=== PATIENT | male | born 1940 | race Caucasian/White ===

== ENCOUNTER → 2016-12-17 | Outpatient (CLI) | payer OTHER ==
[~2016-12-17] MED LIST: ACET-1256 PO; AMLO-110 PO; ASPI-435 PO; ASPI81CH2 PO; ATOR-24 PO; ATOR-26 PO; CETI10TA84 PO; DICY20TA35 PO; DOXY50CA26 PO; DOXY50TA PO; FLUO0.0566 TOP; IPRA0.037 INH; IPRA0.06; LISI-461 PO; METO1TAB31 PO; METO25TA3 PO; METR0.754 TOP; MULT-506 PO; NTRGSL/4 UT; OMEP20CA9 PO; SAW160CA PO; SILD100T PO; TERA1CAP PO; [UNRECOGNIZED DRUG - CODE]
[2016-12-17 15:52] LABS: BASO % 0.4 %; BASO ABS # 0.02 K/uL (0-0.2); COMPLETE YES; HEMATOCRIT 40.8 % (42-52); IG% 0.2 %; LYMPH % 29.7 %; LYMPH ABS # 1.58 K/uL (1.2-3.4); MEAN CELL VOLUME 86.4 fL (80-100); MEAN CORPUSCULAR HEMOGLOBIN 30.7 pg (25-34); MEAN CORPUSCULAR HGB CONC 35.5 g/dl (32-36); MEAN PLATELET VOLUME 10.8 fL (7.4-10.4); MONO % 10.9 %; NEUT % 55.8 %; PLATELET COUNT 177 K/uL (130-400); RED BLOOD COUNT 4.72 M/uL (4.7-6.1); WHITE BLOOD COUNT 5.32 K/uL (4.8-10.8)
[2016-12-17 16:01] LABS: PROTHROMBIN TIME (PATIENT) 10.7 SECONDS (9.0-12.0)
[2016-12-17 16:25] LABS: BLOOD UREA NITROGEN 21 mg/dl (7-18); BUN/CREATININE RATIO 25.5 (10-20); CALCIUM 8.6 mg/dl (8.5-10.1); CARBON DIOXIDE 26 mmol/L (21-32); CHLORIDE 106 mmol/L (98-107); CREATININE 0.82 mg/dl (0.60-1.40); GLUCOSE 91 mg/dl (70-99); POTASSIUM 4.1 mmol/L (3.5-5.1); SODIUM 138 mmol/L (136-145)
== END | disposition home or self-care (01) ==
LOC: C.LAB 14:45
PROVIDERS: ATTEND Orthopaedic Surgery Sports Medicine
DX: Z01.818 Encounter for other preprocedural examination (principal)

== ENCOUNTER → 2017-01-03 | Day surgery (SDC) | payer OTHER ==
[2016-12-18 16:31] VITALS: BMI 27.0
--- NOTE | 2017-01-02 18:53 | HISTORY & PHYSICAL EXAMINATION ---
DATE OF ADMISSION: 01/03/2017 CHIEF COMPLAINT: Chronic right shoulder pain. HISTORY OF PRESENT ILLNESS: This is a 76-year-old male patient of Dr. Gao'wanda complaining of chronic right shoulder pain for approximately 1 year now. He has had no trauma. He is status post resurfacing hemiarthroplasty in 2013. He has continued to have chronic pain in his right shoulder and he has elected to proceed with a right shoulder arthroscopic subacromial decompression, release of scar tissue, and possible debridement rotator cuff. PAST MEDICAL HISTORY: Hypertension, sleep apnea. SOCIAL HISTORY: Nonsmoker, nondrinker. PAST SURGICAL HISTORY: Cataract surgery, coronary bypass surgery, shoulder replacement surgery and hemorrhoidectomy. REVIEW OF SYSTEMS: The patient complains of chronic right shoulder pain. Otherwise, denies any shortness of breath, chest pain, nausea, vomiting or any other joint complaints. MEDICATIONS: Include: 1. Ipratropium bromide 2 sprays t.i.d. in each nostril. 2. Metoprolol 25 mg 1/2 tablet daily. 3. Terazosin 1 mg daily. 4. Doxycycline 50 mg as needed. 5. Lisinopril 10 mg daily. 6. Omeprazole 20 mg daily. 7. Lipitor 80 mg daily. 8. Norvasc 5 mg daily. 9. Viagra 100 mg as needed. 10. Metronidazole 0.75% topical solution, please apply to affected area 2 times daily. 11. Aspirin 81 mg daily. 12. Percocet as needed. ALLERGIES: INCLUDE KEFLEX, ADHESIVES, AND LAMISIL. PHYSICAL EXAMINATION: GENERAL: Well-developed, well-nourished 76-year-old male patient in no acute distress. He is alert and oriented x3 and pleasant. HEENT: He is normocephalic, atraumatic. Extraocular motions are intact. Pupils are equal and reactive to light. HEART: Regular rate and rhythm. LUNGS: Clear. ABDOMEN: Soft and nontender, bowel sounds are present. EXTREMITIES: Right shoulder reveals a range of motion of 170 degrees. He has got pain with impingement maneuvering 5/5 strength. NEUROLOGIC: Neurovascularly, he is intact in his right upper extremity. DIAGNOSES: Right shoulder impingement, history of scar tissue, and partial rotator cuff tear. He also has a history of hypertension and sleep apnea. PLAN: The patient was advised of his diagnoses. Indications, risks, benefits, and postop course have all been reviewed. The patient wishes to proceed with a right shoulder arthroscopic subacromial decompression, release of scar tissue, and possible debridement rotator cuff tear. Necessary consent forms and preoperative clearances will be obtained.
[~2017-01-03] VITALS: Ht 165.1 cm; Wt 74.1 kg
[~2017-01-03] MED LIST changes: -ASPI81CH2 PO; -ATOR-24 PO; +ATROPINE SULFATE 0.1 MG/ML 5ML SYR IV PRN; +DEXAMETHASONE SOD INJ 4 MG/ML VIAL ONE; -DOXY50TA PO; +EpHEDrine SULFATE INJ 50 MG/ML AMP IV PRN; +EpINEphrine HCL INJ 1 MG/ML 5ML SYRINGE ONE; +FENTANYL CITRATE INJ 50 MCG/1 ML 2 ML VIAL ONE; +GLYCOPYRROLATE INJ 0.2 MG/ML VIAL ONE; +HYDROmorphone INJ 2 MG/ML SYR/VIAL IV PRN; -IPRA0.037 INH; +LACTATED RINGER'S 1000ML 1,000 ML IV SCH; +LIDOCAINE HCL 2% 2 ML VIAL (20MG/ML) ONE; -METO1TAB31 PO; +MIDAZOLAM HCL 1 MG/ML 2ML VIAL ONE; +MoRPHine SULFATE 2 MG/ML CARP IV PRN; +NEOSTIGMINE METHYLSULFATE 5 MG/5 ML SYR ONE; +ONDANSETRON INJ 2 MG/ML 2 ML VIAL IV PRN; +ONDANSETRON INJ 2 MG/ML 2 ML VIAL ONE; +OXYC-57 PO; +OXYCODONE/ACETAMINOPHEN 5-325 TAB PO PRN; +PHENYLEPHRINE 100MCG/ML 5ML SYR IV PRN; +PROPOFOL IV EMULSION 10 MG/ML 20 ML VIAL IV ONE; +ROCURONIUM BROMIDE 10 MG/ML 5 ML VIAL IV ONE; +ROPIVACAINE 0.5% 5 MG/ML 30 ML VIAL ONE; +SODIUM CHLORIDE 0.9% 1000ML 1,000 ML IV SCH; +VANCOMYCIN 1GM/270ML NSS IV SCH; -[UNRECOGNIZED DRUG - CODE]
[2017-01-03 05:51] VITALS: BP 160/98; PULSE 61; TEMP 36.6; O2SAT 99; Ht 165.1 cm; Wt 74.1 kg
--- NOTE | 2017-01-03 07:19 | History & Physical Bridge Note ---
H&P Re-Evaluation Bridge Note: I have examined the patient, reviewed the History & Physical and in the interval since the performance of the History & Physical I have noted the following changes of clinical significance: No changes noted
--- NOTE | 2017-01-03 09:41 | Discharge Instructions ---
Discharge Instructions Date of Service Jan 03, 2017. Visit Reason for Visit: Right Shoulder Impingement Syndrome, Rtc Tear Tend Discharge Discharge Diagnosis / Problem: sp right shoulder arthroscopy Discharge Goals Goal(s): Decrease discomfort, Improve function, Increase independence Activity Recommendations Activity Limitations: per Instructions/Follow-up section Anesthesia . Post Anesthesia Instructions: If you have had General Anesthesia or IV Sedation: * Do not drive today. * Resume driving when surgeon permits. * Do not make important decisions or sign legal documents today. * Call surgeon for: 1. Temperature elevations greater than 101 degrees F. 2. Uncontrollable pain. 3. Excessive bleeding. 4. Persistent nausea and vomiting. 5. Medication intolerance (nausea, vomiting or rash). * For nausea and vomiting use only clear liquids such as: tea, soda, bouillon until nausea subsides, then gradually increase diet as tolerated. * If you have any concerns or questions, call your surgeon's office. If physician is unavailable and it is an emergency, call 911 or go to the nearest emergency room. . Instructions / Follow-Up Instructions / Follow-Up [facility] [place] INSTRUCTIONS: SHOULDER ARTHROSCOPY with or without Distal Clavicle Excision SELF CARE INSTRUCTIONS AFTER: A. You are allowed to use your arm actively as comfort allows. Recommend NOT doing repetitive overhead activity or heavy lifting. B. You should start Physical Therapy within 1-3 days from your surgery. You will be provided a prescription with specific restrictions, if needed, at time of discharge. C. You can discontinue the sling as comfort allows within one to two days after surgery. A. At 48 hours post-operatively, you may change your dressing. . (Leave white steri-strips intact if present). Use band-aids and change daily. You are allowed to shower at this time and get the incision area wet, but DO NOT soak or submerge incision area in water. (No baths, swimming pools, hot tubs) B. Do NOT apply soap or any ointment/lotions directly over incision. C. You may use ice as needed to operative shoulder SPECIAL CARE INSTRUCTIONS: VERY IMPORTANT TO READ AND REVIEW A. There are a few signs you need to watch for after you are home. Call [facility] at [phone] if you experience any of the following: a. Increased severe shoulder pain. Some pain is expected especially when you exercise b. Increased swelling in your shoulder or arm; pain or swelling in either upper extremity. (Note: swelling and stiffness is normal and expected for several weeks post op, depending on type of shoulder surgery you had). c. Any fluid or drainage from the incision; redness of the incision. d. Shortness of breath or chest pain. B. Please call [facility] at [phone] if you have any questions or concerns about your operation or recovery. C. Call your physician if: a. Temperature is greater than 101 degrees (F). b. Pain is not relieved by prescribed pain medications. c. Increase drainage or redness from incision. d. Unanswered questions or concerns. D. Pain Medication: a. You will be prescribed pain medication upon discharge that should last till your first post-operative appointment. b. You may also take Advil or Ibuprofen between medication doses if you do not have any contraindication to taking them. c. You may also take Advil or Ibuprofen in place of your pain medication if the pain is tolerable. d. If you experience nausea and/or skin rash, discontinue this medication and contact our office for an alternative medication. e. Caution- narcotic pain medication can cause constipation. FOLLOW UP VISIT: Please call [facility] at [phone] to schedule a follow up appointment 10-14 days from your surgery date. Diet Recommendations Recommended Home Diet: resume previous diet Procedures Procedures Performed: Decompression, Release Scar Tissue, with extensive Debridement, synovectomy, anterior and posterior capsule release and manipulation under anesthesia Pending Studies Studies pending at discharge: no Medical Emergencies . Who to Call and When: Medical Emergencies: If at any time you feel your situation is an emergency, please call 911 immediately. . Non-Emergent Contact Non-Emergency issues call your: Surgeon . . "Provider Documentation" section prepared by Anu Yanes. . [place] Drug Monitoring Program Search Results: patient reviewed within database, no issues identified
--- NOTE | 2017-01-03 09:49 | [facility] Post Operative Brief Note ---
Immediate Operative Summary Operative Date Jan 03, 2017. Pre-Operative Diagnosis Right shoulder impingement, history of scar tissue, and partial rotator cuff tear,s/p hemiarthroplasty shoulder Post-Operative Diagnosis SAME,adhesive capsulitis and synnovitis degeneration glenoid labrum intact rotator cuff Procedure(s) Performed right shoulder arthrocopy subacromial Decompression, Release Scar Tissue, with extensive Debridement, synovectomy, anterior and posterior capsule release and manipulation under anesthesia Surgeon Dr. Kodak Gao Benefits Advisor Surgeon(s) Latasha Yanes PA-C Estimated Blood Loss 15ml Findings as above Specimens none per surgeon Anesthesia general and regional Complication(s) None Disposition Recovery Room / PACU
--- NOTE | 2017-01-03 09:57 | Anesthesiology Progress Note ---
Anesthesia Post Op Note Date & Time Jan 03, 2017 at 09:57 Vital Signs Pain Intensity: 0 Vital Signs Past 12 Hours Date Time Temp Pulse Resp B/P (MAP) Pulse Ox O2 Delivery O2 Flow Rate FiO2 01/03/17 09:45 63 13 129/75 98 Room Air 01/03/17 09:35 36.0 64 16 133/98 98 Room Air 01/03/17 05:51 36.6 61 18 160/98 (118) 99 Room Air Notes Mental Status: alert / awake / arousable, participated in evaluation Pt Amnestic to Procedure: Yes Nausea / Vomiting: adequately controlled Pain: adequately controlled Airway Patency, RR, SpO2: stable & adequate BP & HR: stable & adequate Hydration State: stable & adequate Anesthetic Complications: no major complications apparent
[2017-01-03 10:22] VITALS: BP 146/87; PULSE 61; TEMP 36; O2SAT 96
[2017-01-03 10:50] VITALS: BP 155/83; PULSE 62; O2SAT 96
[2017-01-03 11:20] VITALS: BP 125/70; PULSE 70; TEMP 36.4; O2SAT 95
--- NOTE | 2017-01-03 12:18 | OPERATIVE REPORT ---
DATE OF OPERATION: 01/03/2017 INDICATION FOR PROCEDURE: The patient is a 76-year-old male with chronic stiffness and moderate pain, status post a hemiarthroplasty of his right shoulder. He had a resurfacing hemiarthroplasty. Never regained full range of motion postoperatively. His x-rays demonstrate he has a well-aligned hemiarthroplasty, no loosening, concentric wear. He has no significant proximal migration of the humerus, but does have some spurring in the anterior acromion that could be causing some impingement. He has some mild AC joint arthritic changes. He has failed conservative management. PREOPERATIVE DIAGNOSES: Chronic right shoulder stiffness, status post hemiarthroplasty; right shoulder impingement syndrome; history of partial tear rotator cuff. 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 PROCEDURES: Right shoulder arthroscopy, extensive debridement including labrum, partial synovectomy, anterior and posterior capsular releases, subacromial debridement and subacromial decompression and manipulation under anesthesia. SURGEON: Dr. Gao. MARKET REPORTER: RASHAWN Keller. ANESTHESIA: Regional block general. OPERATIVE PROCEDURE: The patient was taken to the operating room, anesthetized with regional block and general anesthetic. He was positioned on the [facility] shoulder table in a 70-degree beach chair position. His right shoulder was examined under anesthesia. He only had 45 degrees of external rotation and 45 degrees of internal rotation and abduction to 90 degrees and forward elevation to 120. The shoulder was sterilely prepped and draped with ChloraPrep. Arthroscopy was then started with a posterior arthroscopy portal in the soft spot. We made an anterior portal in rotator interval and a lateral portal in the subacromial space. Intra-articular findings demonstrated he had intact hemiarthroplasty. He had an intact rotator cuff. He had chronic synovitis throughout the inside of the joint. He had degeneration of labrum. Glenoid for the most part was down to bone. There was no abnormal wear pattern. He had very extensive tight scar tissue limiting range of motion of his joint. There was extensive scarring in the rotator interval. He had previous biceps tenodesis, there was absent biceps tendon. In the subacromial space, there was chronic bursal adhesions and scar tissue. He had a type 2-3 acromion with more of medial spur toward the AC joint. Rotator cuff on the bursal side was completely normal. Extensive debridement was performed with a circumferential debridement of the labrum, synovectomy anterior posteriorly and had to do capsular releases, releasing the capsule off the anterior bone on the glenoid, starting at the rotator interval area which was released above the subscapularis tendon, released the superior capsule and rotator interval off the base of the coracoid under the supraspinatus. Then we released the anterior capsule down to between the 5:30 and 6 o'clock position. Staying on bone, I used a hook probe and a 90-degree ablator. Then we placed the scope anteriorly and debrided the posterior and posterior inferior labrum, used the hook probe and 90-degree radiofrequency ablator to the posterior capsular release as well. The shoulder was then manipulated under anesthesia, I was able to get him to close to 180 degrees of forward elevation and 90 degrees of external rotation. His internal rotation was only about 70-75. I went ahead in the subacromial space, did a thorough subacromial bursectomy, removing all the bursal adhesions and excised all the pathological bursa, ablated the periosteum and bursa on the undersurface of the acromion, exposed the anterior acromial spur, used a 5.5 bur to plane down the acromion to a type 1 flat shape. Then we did another manipulation to manipulate his arm fully to regain as much motion as possible. Then the portal sites were closed with nylon sutures. Sterile dressings were applied and a sling. RASHAWN Keller was my or assistant. He functioned as or assistant for the entire procedure. He assisted in patient positioning, arm positioning, instrument management and performed the skin closure, dressing and sling application, will participate in some of the postoperative care of the patient. I attest to the content of the Intraoperative Record and any orders documented therein. Any exception s are noted below.
== END | disposition home or self-care (01) ==
LOC: C.ACU 04:58
PROVIDERS: ATTEND Orthopaedic Surgery Sports Medicine
DX: M75.41 Impingement syndrome of right shoulder (principal); M75.01 Adhesive capsulitis of right shoulder; M75.51 Bursitis of right shoulder; M19.011 Primary osteoarthritis, right shoulder; Z96.611 Presence of right artificial shoulder joint

== ENCOUNTER 2017-09-22 07:37 | Observation (INO) | payer OTHER ==
[~2017-09-22] VITALS: Ht 165.1 cm; Wt 78.5 kg
[~2017-09-22 07:37] MED LIST changes: -ACET-1256 PO; -AMLO-110 PO; +AMLO5TAB3 PO; -ATROPINE SULFATE 0.1 MG/ML 5ML SYR IV PRN; -DEXAMETHASONE SOD INJ 4 MG/ML VIAL ONE; +DOXY-258 PO; -DOXY50CA26 PO; -EpHEDrine SULFATE INJ 50 MG/ML AMP IV PRN; -EpINEphrine HCL INJ 1 MG/ML 5ML SYRINGE ONE; -FENTANYL CITRATE INJ 50 MCG/1 ML 2 ML VIAL ONE; -GLYCOPYRROLATE INJ 0.2 MG/ML VIAL ONE; -HYDROmorphone INJ 2 MG/ML SYR/VIAL IV PRN; -LACTATED RINGER'S 1000ML 1,000 ML IV SCH; -LIDOCAINE HCL 2% 2 ML VIAL (20MG/ML) ONE; -MIDAZOLAM HCL 1 MG/ML 2ML VIAL ONE; -MoRPHine SULFATE 2 MG/ML CARP IV PRN; -NEOSTIGMINE METHYLSULFATE 5 MG/5 ML SYR ONE; -ONDANSETRON INJ 2 MG/ML 2 ML VIAL IV PRN; -ONDANSETRON INJ 2 MG/ML 2 ML VIAL ONE; -OXYC-57 PO; -OXYCODONE/ACETAMINOPHEN 5-325 TAB PO PRN; -PHENYLEPHRINE 100MCG/ML 5ML SYR IV PRN; -PROPOFOL IV EMULSION 10 MG/ML 20 ML VIAL IV ONE; -ROCURONIUM BROMIDE 10 MG/ML 5 ML VIAL IV ONE; -ROPIVACAINE 0.5% 5 MG/ML 30 ML VIAL ONE; -SODIUM CHLORIDE 0.9% 1000ML 1,000 ML IV SCH; -VANCOMYCIN 1GM/270ML NSS IV SCH
[2017-09-22] MEDS ORDERED: MELO7.5T5 PO (08:15)
[2017-09-22] MEDS ORDERED: FLUT0.15 NAE (08:15)
--- NOTE | 2017-09-22 08:16 | DIAGNOSTIC IMAGING REPORT ---
CHEST ONE VIEW PORTABLE CLINICAL HISTORY: Evaluate Fever/Sepsis dyspnea COMPARISON STUDY: No previous studies for comparison. FINDINGS: The bones soft tissues and hemidiaphragms are normal. The cardiomediastinal silhouette is normal. The lungs are clear. The pulmonary vasculature is normal. IMPRESSION: Negative chest. The above report was generated using voice recognition software. It may contain grammatical, syntax or spelling errors. Electronically signed by: Bhupendra Delgado M.D. 09/22/2017 8:15 AM Dictated Date/Time: 09/22/2017 8:13 AM
[2017-09-22 08:25] LABS: BASO % 0.3 %; BASO ABS # 0.01 K/uL (0-0.2); EOS % 3.9 %; EOS ABS # 0.15 K/uL (0-0.5); HEMATOCRIT 40.6 % (42-52); HEMOGLOBIN 13.9 g/dL (14.0-18.0); IG# 0.01 K/uL (0.00-0.02); LYMPH % 29.9 %; LYMPH ABS # 1.16 K/uL (1.2-3.4); MEAN CELL VOLUME 88.5 fL (80-100); MEAN CORPUSCULAR HEMOGLOBIN 30.3 pg (25-34); MEAN CORPUSCULAR HGB CONC 34.2 g/dl (32-36); MEAN PLATELET VOLUME 11.1 fL (7.4-10.4); MONO ABS # 0.27 K/uL (0.11-0.59); NEUT % 58.6 %; NEUT ABS # 2.28 K/uL (1.4-6.5); PLATELET COUNT 152 K/uL (130-400); RED CELL DISTRIBUTION WIDTH CV 12.9 % (11.5-14.5); RED CELL DISTRIBUTION WIDTH SD 41.2 fL (36.4-46.3); WHITE BLOOD COUNT 3.88 K/uL (4.8-10.8)
[2017-09-22 08:30] LABS: PTT PATIENT 25.2 SECONDS (21.0-31.0)
[2017-09-22 08:47] LABS: ALBUMIN 3.4 gm/dl (3.4-5.0); ALKALINE PHOSPHATASE 43 U/L (45-117); ALT/SGPT 40 U/L (12-78); AST/SGOT 30 U/L (15-37); BLOOD UREA NITROGEN 17 mg/dl (7-18); CALCIUM 8.5 mg/dl (8.5-10.1); CARBON DIOXIDE 28 mmol/L (21-32); CKMB 1.6 ng/ml (0.5-3.6); CREATININE 0.84 mg/dl (0.60-1.40); GLUCOSE 107 mg/dl (70-99); POTASSIUM 4.1 mmol/L (3.5-5.1); SODIUM 139 mmol/L (136-145); TOTAL PROTEIN 6.1 gm/dl (6.4-8.2)
--- NOTE | 2017-09-22 10:13 | EMERGENCY ROOM VISIT NOTE ---
History Report prepared by Earline: Luis Antonio Hernandez Under the Supervision of: Dr. Noah Kaplan D.O. First contact with patient: 07:46 Chief Complaint: CHEST PAIN Stated Complaint: CHEST PRESSURE History of Present Illness The patient is a 76 year old male who presents to the Emergency Room with complaints of chest discomfort that began this morning, shortly prior to arrival. The patient states that he was walking his dog this morning when he experienced a "pressure" in his chest. He notes that the pain persisted for about 20 minutes before subsiding. The pain subsided when he returned to his house, and remains resolved. The patient adds that he had a similar sensation in 2013 when he was diagnosed with coronary artery blockage. 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 A total of 10 systems reviewed and were otherwise negative. Past Medical & Surgical Medical Problems: (1) Arthritis Family History Omitted secondary to age Social History Smoking Status: Former Smoker Marital Status: Housing Status: lives with family Occupation Status: retired Current/Historical Medications Scheduled Amlodipine (Norvasc), 5 MG PO QAM Aspirin (Aspirin 81), 162 MG PO QPM Atorvastatin (Lipitor), 80 MG PO QPM Cetirizine (Zyrtec), 10 MG PO QAM Doxycycline (Monohydrate) (Doxycycline), 100 MG PO BID Fluocinonide (Fluocinonide), 1 APPLN TOP QAM Fluticasone Propionate (Nasal) (Flonase Allergy Relief), 1 SPRAY ZHAO DAILY Ipratropium Lasara (Nasal) (Ipratropium Lasara), 2 SPRAYS NA BID Lisinopril (Zestril), 10 MG PO QAM Meloxicam (Mobic), 7.5 MG PO DAILY Metoprolol Succ (Toprol Xl) (Toprol-Xl), 12.5 MG PO QAM Metronidazole (Topical) (Metrocream), 1 APPLN TOP QAM Multivitamin (Multivitamin), 1 TAB PO QPM Nitroglycerin (Nitrostat), 0.4 MG UT PRN Omeprazole (Prilosec), 20 MG PO BID [place] (Serenoa Repens) ([place] Prostate Com), 160 MG PO BID Sildenafil Citrate (Viagra), 100 MG PO PRN Allergies Coded Allergies: Terbinafine (Verified Allergy, Severe, RASH, 09/22/17) Adhesives (Verified Allergy, Intermediate, REDDENED AREAS ON SKIN, 09/22/17 ) FROM TAPES Cephalexin (Verified Allergy, Intermediate, RASH, 09/22/17) Physical Exam Vital Signs Date Time Temp Pulse Resp B/P (MAP) Pulse Ox O2 Delivery O2 Flow Rate FiO2 09/22/17 09:07 64 21 168/88 99 09/22/17 08:37 60 12 99 09/22/17 08:07 63 12 98 09/22/17 08:02 63 09/22/17 07:57 36.7 62 20 155/85 97 Room Air 09/22/17 07:53 155/85 09/22/17 07:52 Room Air Physical Exam CONSTITUTIONAL/VITAL SIGNS: Reviewed / noted above. GENERAL: Non-toxic in appearance. INTEGUMENTARY: Warm, dry, and [place]. HEAD: Normocephalic. EYES: without scleral icterus or trauma. ENT/OROPHARYNX: clear and moist. LYMPHADENOPATHY/NECK: Is supple without lymphadenopathy or meningismus. RESPIRATORY: Lungs clear and equal. CARDIOVASCULAR: Regular rate and rhythm. GI/ABDOMEN: Soft and nontender. No organomegaly or pulsatile mass. No rebound or guarding. Normal bowel sounds. EXTREMITIES: Warm and well perfused. BACK: No CVA tenderness. NEUROLOGICAL: Intact without focal deficits. PSYCHIATRIC: normal affect. MUSCULOSKELETAL: Normally developed with good muscle tone. Medical Decision & Procedures ER Provider Diagnostic Interpretation: Radiology results as stated below per my review and radiologist interpretation: CHEST ONE VIEW PORTABLE CLINICAL HISTORY: Evaluate Fever/Sepsis dyspnea COMPARISON STUDY: No previous studies for comparison. FINDINGS: The bones soft tissues and hemidiaphragms are normal. The cardiomediastinal silhouette is normal. The lungs are clear. The pulmonary vasculature is normal. IMPRESSION: Negative chest. The above report was generated using voice recognition software. It may contain grammatical, syntax or spelling errors. Electronically signed by: Bhupendra Delgado M.D. 09/22/2017 8:15 AM Dictated Date/Time: 09/22/2017 8:13 AM Laboratory Results 09/22/17 08:10 Red Blood Count 4.59, Mean Corpuscular Volume 88.5, Mean Corpuscular Hemoglobin 30.3, Mean Corpuscular Hemoglobin Concent 34.2, Mean Platelet Volume 11.1, Neutrophils (%) (Auto) 58.6, Lymphocytes (%) (Auto) 29.9, Monocytes (%) (Auto) 7.0, Eosinophils (%) (Auto) 3.9, Basophils (%) (Auto) 0.3, Neutrophils # (Auto) 2.28, Lymphocytes # (Auto) 1.16, Monocytes # (Auto) 0.27, Eosinophils # (Auto) 0.15, Basophils # (Auto) 0.01 09/22/17 08:10 Test 09/22/17 08:10 White Blood Count 3.88 K/uL (4.8-10.8) Red Blood Count 4.59 M/uL (4.7-6.1) Hemoglobin 13.9 g/dL (14.0-18.0) Hematocrit 40.6 % (42-52) Mean Corpuscular Volume 88.5 fL (80-100) Mean Corpuscular Hemoglobin 30.3 pg (25-34) Mean Corpuscular Hemoglobin Concent 34.2 g/dl (32-36) Platelet Count 152 K/uL (130-400) Mean Platelet Volume 11.1 fL (7.4-10.4) Neutrophils (%) (Auto) 58.6 % Lymphocytes (%) (Auto) 29.9 % Monocytes (%) (Auto) 7.0 % Eosinophils (%) (Auto) 3.9 % Basophils (%) (Auto) 0.3 % Neutrophils # (Auto) 2.28 K/uL (1.4-6.5) Lymphocytes # (Auto) 1.16 K/uL (1.2-3.4) Monocytes # (Auto) 0.27 K/uL (0.11-0.59) Eosinophils # (Auto) 0.15 K/uL (0-0.5) Basophils # (Auto) 0.01 K/uL (0-0.2) RDW Standard Deviation 41.2 fL (36.4-46.3) RDW Coefficient of Variation 12.9 % (11.5-14.5) Immature Granulocyte % (Auto) 0.3 % Immature Granulocyte # (Auto) 0.01 K/uL (0.00-0.02) Prothrombin Time 10.9 SECONDS (9.0-12.0) Prothromb Time International Ratio 1.0 (0.9-1.1) Activated Partial Thromboplast Time 25.2 SECONDS (21.0-31.0) Partial Thromboplastin Ratio 1.0 Anion Gap 5.0 mmol/L (3-11) Est Creatinine Clear Calc Drug Dose 74.5 ml/min Estimated GFR () 100.0 Estimated GFR (Non- 86.3 BUN/Creatinine Ratio 19.6 (10-20) Calcium Level 8.5 mg/dl (8.5-10.1) Total Bilirubin 0.5 mg/dl (0.2-1) Direct Bilirubin 0.2 mg/dl (0-0.2) Aspartate Amino Transf (AST/SGOT) 30 U/L (15-37) Alanine Aminotransferase (ALT/SGPT) 40 U/L (12-78) Alkaline Phosphatase 43 U/L (45-117) Total Creatine Kinase 71 U/L (39-308) Creatine Kinase MB 1.6 ng/ml (0.5-3.6) Creatine Kinase MB Ratio 2.3 (0-3.0) Troponin I < 0.015 ng/ml (0-0.045) Total Protein 6.1 gm/dl (6.4-8.2) Albumin 3.4 gm/dl (3.4-5.0) Laboratory results as stated above per my review. ECG Per My Interpretation Indication: chest pain Rate (beats per minute): 61 Rhythm: normal sinus Findings: LAFB, RBBB, no ectopy, other (No NEIL) ED Course 0749: Previous medical records were reviewed. The patient was evaluated in room A3. A complete history and physical examination was performed. 0849: I discussed the case with Dr. Daley - [facility] He will come to the department to see the patient. 0851: I updated the patient on my discussion with Dr. Daley. 0923: Dr. Daley is at bedside with the patient, he will admit the patient to the hospital. Medical Decision the differential was considered includes acute myocardial infarction, acute coronary syndrome, myocarditis, pericarditis, pericardial effusions /tamponade, esophageal perforation, thoracic aortic dissection, pulmonary embolism, pneumonia, pneumothorax, pancreatitis, shingles, acute cholecystitis, perforated abdominal viscus. This is a 76-year-old male who presents to the ED with a chief complaint of retrosternal pressure with walking today. His symptoms lasted during his 20 minute walk and then subsided with rest. He had no other associated symptoms. He does recent report similar episodes in 2013 prior to his single-vessel bypass. The patient's vital signs are stable. His physical exam was normal. EKG shows a normal sinus rhythm at a rate of 61 with a right bundle branch block. Blood work was unremarkable including CBC, chemistries and a troponin. The patient was seen by Dr. Batitsa. The patient will be kept in the hospital for further evaluation and care. Medication Reconcilliation Current Medication List: was personally reviewed by me Blood Pressure Screening Patient's blood pressure: Elevated blood pressure Referred to cardiology. Consults Time Called: [phone] Consulting Physician: Dr. Daley - [facility] Returned Call: [phone] I discussed the case with Dr. Daley - [facility]. He will come to the department to see the patient. Impression Primary Impression: Anginal pain Scribe Attestation The scribe's documentation has been prepared under my direction and personally reviewed by me in its entirety. I confirm that the note above accurately reflects all work, treatment, procedures, and medical decision making performed by me. Departure Information Dispostion Being Evaluated By Hospitalist (and Rivet Catcher) Referrals Boone Michelle M.D. (PCP) Patient Instructions My [facility]
--- NOTE | 2017-09-22 10:19 | Cardiology Consultation ---
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 Kaplan for the evaluation of chest pressure. The patient's primary care physician is Dr. Boone Michelle. The patient's primary catcher plug is Nicholas Blankenship of our practice. The patient states that he has been in his normal state of health recently. He exercises 3 times per week at the [facility] performing aerobic activity including stationary bicycle and resistance training. Yesterday he hiked [address] including walking up a hill the had a 10% incline and he felt well with no perceived limitation his activity and no chest pressure. This morning between 630 and 7 AM he went for his routine walk with his dog that he does every morning. During the walk, he felt chest pressure that was reminiscent of the symptoms that prompted his cardiac catheterization and bypass surgery in 2013. He believes the symptoms persisted for a few minutes after he returned from his walk and subsequently went away after resting for perhaps 5 or 10 minutes. Due to his concern about his symptoms he had contacted me as our on- call physician the our answering service and I referred him to the emergency room. On my evaluation in the emergency room, room A3, the patient was comfortable. He is accompanied by his spouse. History Past Medical History: 1. Chronic coronary heart disease -Patient initially presented in December 2013 with exertional chest pressure. An exercise stress echocardiogram performed as an outpatient revealed ischemia in the LAD territory. The patient subsequently underwent cardiac catheterization performed by Dr. Blankenship at [facility] in December 2013 revealing high-grade diffuse LAD disease that propagated back to the left main, and distally, the LAD obstruction was at the level of 80-90%. Nonobstructive disease was noted elsewhere. He went on to have single-vessel CABG 1 in January,, with no repeat symptoms concerning of angina until today . 2. Hypertension 3. Dyslipidemia 4. History of obstructive sleep apnea, started CPAP several months ago 5. History of traumatic Achilles tendon rupture in March, that occurred while playing pickle ball. The patient was casted for 6 months and responded well to conservative therapy without operation. 6. History of right shoulder impingement, rotator cuff tear Past Surgical History: 1. Right shoulder arthroscopy with subacromial decompression, debridement, 12/10 2. Cataract surgery 3. Remote prior shoulder replacement 4. Hemorrhoidectomy 5. [place] [facility] [place] 6. Cardiac catheterization 12/2013 Social History: The patient is a former pipe tobacco smoker having quit 25 years ago He denies chronic intake of alcohol He is a retired [employer] database admin who works for the [employer] He is accompanied by his spouse, who is a retired nurse. Family History: Mother is having lived to her 90s with hypertension and coronary heart disease Review Of Systems 10 point review of systems is reviewed and is negative with the exception of that above Allergies Coded Allergies: Terbinafine (Verified Allergy, Severe, RASH, 09/22/17) Adhesives (Verified Allergy, Intermediate, REDDENED AREAS ON SKIN, 09/22/17 ) FROM TAPES Cephalexin (Verified Allergy, Intermediate, RASH, 09/22/17) Medications Reported Home Medications Medications Dose Route/Sig Max Daily Dose Days Date Category Mobic (Meloxicam) 7.5 Mg Tab 7.5 Mg PO DAILY 09/22/17 Reported Flonase Allergy Relief (Fluticasone Propionate (Nasal)) 50 Mcg/Act Spr 1 [place] ZHAO DAILY 09/22/17 Reported Doxycycline (Doxycycline (Monohydrate)) 50 Mg Cap 100 Mg PO BID 10 01/03/17 Rx Zyrtec (Cetirizine HCl) 10 Mg Tab 10 Mg PO QAM 12/18/16 Reported Fluocinonide 0.05 % Sary 1 Appln TOP QAM 12/18/16 Reported Multivitamin (Multivitamins) Tab 1 Tab PO QPM 12/18/16 Reported Viagra (Sildenafil Citrate) 100 Mg Tab 100 Mg PO PRN 12/18/16 Reported Nitrostat (Nitroglycerin) 0.4 Mg Tab 0.4 Mg UT PRN 12/18/16 Reported Toprol-Xl (Metoprolol Succinate) 25 Mg Tabcr 12.5 Mg PO QAM 12/18/16 Reported Ipratropium [place] (Ipratropium [place] (Nasal)) 0.06 % Spr 2 Sprays NA BID 12/18/16 Reported Norvasc (Amlodipine Besylate) 5 Mg Tab 5 Mg PO QAM 12/18/16 Reported Metrocream (Metronidazole (Topical)) 0.75 % Cre 1 Appln TOP QAM 12/18/16 Reported Zestril (Lisinopril) 10 Mg Tab 10 Mg PO QAM 12/18/16 Reported Aspirin 81 (Aspirin) 81 Mg Tab 162 Mg PO QPM 12/18/16 Reported Lipitor (Atorvastatin Calcium) 80 Mg Tab 80 Mg PO QPM 12/18/16 Reported Saw [place] Prostate Com (Saw [place] (Serenoa Repens)) 160 Mg Cap 160 Mg PO BID 03/07/14 Reported Prilosec (Omeprazole) 20 Mg Cap 20 Mg PO BID 04/15/13 Reported Physical Exam Vital Signs (Last 8hrs): Last 8 Hrs Date Time Temp Pulse Resp B/P (MAP) Pulse Ox O2 Delivery O2 Flow Rate FiO2 09/22/17 09:07 64 21 168/88 99 09/22/17 08:37 60 12 99 09/22/17 08:07 63 12 98 09/22/17 08:02 63 09/22/17 07:57 36.7 62 20 155/85 97 Room Air 09/22/17 07:53 155/85 09/22/17 07:52 Room Air General Appearance: Alert and Oriented x3. NAD. Head: Normocephalic Atraumatic. Eyes: PERRLA, EOMI, conjunctiva and sclera clear Neck: Supple. No carotid bruits noted. No JVD. No HJD. Respiratory: Breath sounds clear to auscultation bilaterally. No w/r/r. Cardiovascular: Reg rate and rhythm. S1 and S2 noted. No murmurs, rubs, gallops. PMI non displace. Abdomen: Normal bowel sounds, soft nontender. no abdominal bruits. Extremities: No edema, no clubbing or cyanosis. distal pulses 2/4 bilaterally. Neuro: No focal deficits. Psychiatric: Normal affect. Data Last Resulted 09/22/17 08:10 Red Blood Count 4.59, Mean Corpuscular Volume 88.5, Mean Corpuscular Hemoglobin 30.3, Mean Corpuscular Hemoglobin Concent 34.2, Mean Platelet Volume 11.1, Neutrophils (%) (Auto) 58.6, Lymphocytes (%) (Auto) 29.9, Monocytes (%) (Auto) 7.0, Eosinophils (%) (Auto) 3.9, Basophils (%) (Auto) 0.3, Neutrophils # (Auto) 2.28, Lymphocytes # (Auto) 1.16, Monocytes # (Auto) 0.27, Eosinophils # (Auto) 0.15, Basophils # (Auto) 0.01 Last Resulted 09/22/17 08:10 Past 24 Hours Test 09/22/17 08:10 Range/Units Creatine Kinase MB 1.6 0.5-3.6 ng/ml Creatine Kinase MB Ratio 2.3 0-3.0 Prothromb Time International Ratio 1.0 0.9-1.1 Prothrombin Time 10.9 9.0-12.0 SECONDS Total Creatine Kinase 71 39-308 U/L Troponin I < 0.015 0-0.045 ng/ml EKG performed in the emergency department revealed sinus rhythm with bifascicular block pattern, right bundle branch block and left anterior fascicular block, unchanged compared to his prior outpatient EKG. Assessment & Plan Impression: 76-year-old male 1. Single episode of exertional chest pressure while walking his dog that resolved with subsequent rest. Patient is currently asymptomatic in the emergency room with negative troponin 1 negative EKG 1 2. Symptoms were reminiscent of the anginal symptoms that prompted his cardiac catheterization, coronary artery bypass grafting 1 with DAVIS to LAD in January -Tonic bifascicular block, right bundle branch block, left anterior fascicular block 3. Hypertension, blood pressure a little bit above goal 4. Dyslipidemia 5. Traumatic Achilles tendon rupture, stable, he is back to his regular routine and is able to walk without orthopedic discomfort Recommendations: At this time, recommend admission to telemetry for further observation. Recommend serial cardiac isoenzymes. Resting echocardiogram will be obtained. Depending upon his course, we will determine next best step for ischemic workup with either further stratification utilizing stress testing versus proceeding with cardiac catheterization. Case discussed with Dr. Kaplan the emergency department and Dr. Andersno who is covering for the [facility] service.
[2017-09-22] MEDS ORDERED: ASPIRIN 81 MG CHEW PO STA (10:32)
[2017-09-22] MEDS ORDERED: DOXY-258 PO (10:43)
[2017-09-22] MEDS ORDERED: TERA5CAP PO (10:43)
[2017-09-22] MEDS ORDERED: NITROGLYCERIN 0.4 MG SL PER TAB CHARGE SL PRN (10:45)
[2017-09-22] MEDS ORDERED: ACETAMINOPHEN 325 MG TAB PO PRN (10:45)
[2017-09-22] MEDS ORDERED: POLYETHYLENE (MIRALAX) 17 GM PACK PO PRN (10:45)
[2017-09-22] MEDS ORDERED: ONDANSETRON INJ 2 MG/ML 2 ML VIAL IV PRN (10:45)
[2017-09-22] MEDS ORDERED: PERFLUTREN LIPID MICROSPHERE (DEFINITY) IV ONE (10:56)
[2017-09-22] MEDS ORDERED: METOPROLOL SUCC 25MG EXT REL TAB PO ONE (11:00)
[2017-09-22] MEDS ORDERED: LISINOPRIL 10 MG TAB PO ONE (11:00)
[2017-09-22] MEDS ORDERED: AMLODIPINE BESYLATE 5 MG TAB PO ONE (11:00)
[2017-09-22 11:19] VITALS: BP 190/92; PULSE 66; TEMP 36.5; O2SAT 99; Ht 165.1 cm; Wt 78.5 kg
[2017-09-22] MEDS: HEPARIN SOD 5000 UNIT/0.5 ML CARP SQ SCH ×2 (12:07→20:57)
[2017-09-22 12:10] VITALS: O2SAT 99
[2017-09-22] MEDS ORDERED: IV FLUIDS COMPLETED PRN (12:15)
--- NOTE | 2017-09-22 12:45 | History and Physical ---
History & Physical Date & Time of Service: Sep 22, 2017 at 10:44 Chief Complaint: Chest Pressure Primary Care Physician: Boone Michelle M.D. History of Present Illness Source: patient, spouse, clinic records, hospital records Pt is 76 y/o M with PMH CAD S/P CABG in 2013, HTN, HLD, bifascicular heart block , GERD, HUANG presented to ER with complaint of chest pressure. Patient states was walking his dog this morning and as soon as started walking started having chest pressure to mid chest that was nonradiating and continued throughout his 20 minute walk. Reports pain resolved approximately 5 minutes after rest and has been pain-free since. Patient denies any associated dizziness, SOB, palpitations, nausea, vomiting. He states this chest pressure was similar to what he experienced prior to his CABG in 2013. Patient states goes to gym 3 times a week, and walks daily without any CP or SOB. He states only took his mobic this morning, did not take his other medications. Ate yogurt this morning. Patient reports history left Achilles tendon rupture in 03/2017 in which he was casted for approximately 6 weeks. Patient states gets some swelling to left ankle and calf with activity, denies any worsening, denies any other edema. Denies fever/chills, diaphoresis, N/V/D/C, AUGUSTINE, dizziness, syncope, vision changes, neck pain, orthopnea, cough, sore throat, choking, otalgia, abdominal pain, paresthesias, weakness, extremity weakness, rashes, urinary symptoms, weight loss. Past Medical/Surgical History Medical Problems: (1) Arthritis Status: Chronic (2) CAD (coronary artery disease) Status: Chronic (3) DJD (degenerative joint disease) Status: Chronic (4) GERD (gastroesophageal reflux disease) Status: Chronic (5) HTN (hypertension) Status: Chronic (6) Hyperlipidemia Status: Chronic (7) HUANG (obstructive sleep apnea) Status: Chronic (8) Psoriasis Status: Chronic (9) Rosacea Status: Chronic Surgical Problems: (1) Hx of cataract surgery Status: Resolved (2) S/P CABG x 1 Permanent Comment: 2013- [facility] [place] Status: Resolved Family History FH: lung cancer Hypertension Stroke Social History Smoking Status: Former Smoker (Smokes pipe 30 years: Quit 1995) Smokeless Tobacco Use: No Alcohol Use: 2 drinks daily Drug Use: none Marital Status: Occupational Status: retired Immunizations History of Influenza Vaccine: Yes Influenza Vaccine Date: Feb 10, 2006 History of Tetanus Vaccine?: Yes History of Pneumococcal: Yes History of Hepatitis B Vaccine: No Allergies Coded Allergies: Terbinafine (Verified Allergy, Severe, RASH, 09/22/17) Adhesives (Verified Allergy, Intermediate, REDDENED AREAS ON SKIN, 09/22/17 ) FROM TAPES Cephalexin (Verified Allergy, Intermediate, RASH, 09/22/17) Home Medications Scheduled Amlodipine (Norvasc), 5 MG PO QAM Aspirin (Aspirin 81), 162 MG PO QPM Atorvastatin (Lipitor), 80 MG PO QPM Cetirizine (Zyrtec), 10 MG PO QAM Doxycycline (Monohydrate) (Doxycycline), 1 CAP PO DAILY Fluticasone Propionate (Nasal) (Flonase Allergy Relief), 2 SPRAY ZHAO BID Ipratropium [place] (Nasal) (Ipratropium [place]), 2 SPRAYS NA BID Lisinopril (Zestril), 10 MG PO QAM Meloxicam (Mobic), 7.5 MG PO DAILY Metoprolol Succ (Toprol Xl) (Toprol-Xl), 12.5 MG PO QAM Multivitamin (Multivitamin), 1 TAB PO QPM Nitroglycerin (Nitrostat), 0.4 MG UT PRN Omeprazole (Prilosec), 20 MG PO BID Saw [place] (Serenoa Repens) (Saw [place] Prostate Com), 160 MG PO DAILY Sildenafil Citrate (Viagra), 100 MG PO PRN Terazosin (Hytrin), 1 CAP PO HS Scheduled PRN Fluocinonide (Fluocinonide), 1 APPLN TOP QAM PRN for psoriasis Metronidazole (Topical) (Metrocream), 1 APPLN TOP QAM PRN for rosacea Review of Systems See HPI for pertinent positives & negatives. All other systems reviewed and were otherwise negative Physical Exam Vital Signs Date Time Temp Pulse Resp B/P (MAP) Pulse Ox O2 Delivery O2 Flow Rate FiO2 09/22/17 09:07 64 21 168/88 99 09/22/17 08:37 60 12 99 09/22/17 08:07 63 12 98 09/22/17 08:02 63 09/22/17 07:57 36.7 62 20 155/85 97 Room Air 09/22/17 07:53 155/85 09/22/17 07:52 Room Air General Appearance: WD/WN, no apparent distress Head: normocephalic, atraumatic Eyes: normal inspection, sclerae normal ENT: hearing grossly normal, pharynx normal, + pertinent finding (Mucous membranes moist) Neck: supple, trachea midline Respiratory/Chest: lungs clear, normal breath sounds, no respiratory distress Cardiovascular: regular rate, rhythm, no murmur Abdomen/GI: normal bowel sounds, non tender, soft Extremities/Musculoskelatal: no calf tenderness, normal capillary refill, no pedal edema, non-tender Neurologic/Psych: alert, normal mood/affect, oriented x 3 Skin: warm/dry Diagnostics Laboratory Results Results Past 24 Hours Test 09/22/17 08:10 Range/Units White Blood Count 3.88 4.8-10.8 K/uL Red Blood Count 4.59 4.7-6.1 M/uL Hemoglobin 13.9 14.0-18.0 g/dL Hematocrit 40.6 42-52 % Mean Corpuscular Volume 88.5 80-100 fL Mean Corpuscular Hemoglobin 30.3 25-34 pg Mean Corpuscular Hemoglobin Concent 34.2 32-36 g/dl Platelet Count 152 130-400 K/uL Mean Platelet Volume 11.1 7.4-10.4 fL Neutrophils (%) (Auto) 58.6 % Lymphocytes (%) (Auto) 29.9 % Monocytes (%) (Auto) 7.0 % Eosinophils (%) (Auto) 3.9 % Basophils (%) (Auto) 0.3 % Neutrophils # (Auto) 2.28 1.4-6.5 K/uL Lymphocytes # (Auto) 1.16 1.2-3.4 K/uL Monocytes # (Auto) 0.27 0.11-0.59 K/uL Eosinophils # (Auto) 0.15 0-0.5 K/uL Basophils # (Auto) 0.01 0-0.2 K/uL RDW Standard Deviation 41.2 36.4-46.3 fL RDW Coefficient of Variation 12.9 11.5-14.5 % Immature Granulocyte % (Auto) 0.3 % Immature Granulocyte # (Auto) 0.01 0.00-0.02 K/uL Prothrombin Time 10.9 9.0-12.0 SECONDS Prothromb Time International Ratio 1.0 0.9-1.1 Activated Partial Thromboplast Time 25.2 21.0-31.0 SECONDS Partial Thromboplastin Ratio 1.0 Sodium Level 139 136-145 mmol/L Potassium Level 4.1 3.5-5.1 mmol/L Chloride Level 106 98-107 mmol/L Carbon Dioxide Level 28 21-32 mmol/L Anion Gap 5.0 3-11 mmol/L Blood Urea Nitrogen 17 7-18 mg/dl Creatinine 0.84 0.60-1.40 mg/dl Est Creatinine Clear Calc Drug Dose 74.5 ml/min Estimated GFR () 100.0 Estimated GFR (Non- 86.3 BUN/Creatinine Ratio 19.6 10-20 Random Glucose 107 70-99 mg/dl Calcium Level 8.5 8.5-10.1 mg/dl Total Bilirubin 0.5 0.2-1 mg/dl Direct Bilirubin 0.2 0-0.2 mg/dl Aspartate Amino Transf (AST/SGOT) 30 15-37 U/L Alanine Aminotransferase (ALT/SGPT) 40 12-78 U/L Alkaline Phosphatase 43 45-117 U/L Total Creatine Kinase 71 39-308 U/L Creatine Kinase MB 1.6 0.5-3.6 ng/ml Creatine Kinase MB Ratio 2.3 0-3.0 Troponin I < 0.015 0-0.045 ng/ml Total Protein 6.1 6.4-8.2 gm/dl Albumin 3.4 3.4-5.0 gm/dl Diagnostic Radiology CXR: IMPRESSION: Negative chest. EKG EKG: Normal sinus rhythm, rate 61, right bundle branch block, left anterior fascicular block. No significant changes noted from previous EKG Impression Assessment and Plan Pt is 76 y/o M with PMH CAD S/P CABG in 2013, HTN, HLD, bifascicular heart block , GERD, HUANG presented to ER with complaint of chest pressure. Patient states was walking his dog this morning and started having chest pressure to mid chest that was nonradiating and continued throughout his 20 minute walk, resolved approximately 5 minutes after rest and has been pain-free since. CHEST PAIN R/O ACS. Risk factors: HTN, hyperlipidemia, hx CAD -Monitor Vitals -Repeat EKG in am -Will trend troponin -Echo -lipid panel in am, continue statin -ASA & continue beta lalitha -Nitro prn CP and repeat EKG for CP -Cardiology consult HTN BP 166/88. Pt did not take his morning BP meds. Will give his morning meds -Continue amlodipine, lisinopril, metoprolol, terazosin HYPERLIPIDEMIA -Continue atorvastatin HUANG -CPAP at bedtime GERD -Continue PPI ROSACEA -continue doxycycline DVT Prophylaxis -heparin SQ Admit tele Full Code as per discussion with pt Follows with Dr Michelle for routine care Pt was seen with Dr Anderson. See addendum Resuscitation Status VTE Prophylaxis Will order VTE Prophylaxis: Yes Note ATTENDING ADDENDUM Record reviewed. Patient interviewed and examined. Care coordinated with Margie Sorensen PA-C. Please refer to her documentation for patient's history. Briefly, 76-year-old male with history of coronary artery disease, status post CABG, who experienced midsternal chest pressure this morning while walking his dog. Now pain-free. EXAM: General- no distress Lungs- clear to auscultation; no respiratory distress Cardiovascular- RRR; I/ systolic murmur at base; no gallop; no JVD; no pretibial edema Abdomen- + bowel sounds, soft, nontender Extremities- no cyanosis; no calf tenderness Neuro- alert, oriented Skin- warm & dry DATA: Troponin and ED negative. EKG performed at 0748 reviewed and demonstrated normal sinus rhythm at 60/ minute, right bundle branch block, left anterior fascicular block, no acute changes. ASSESSMENT AND PLAN: Known ischemic heart disease, status post CABG. Chest pressure this morning while walking his dog, relieved by rest. May have recurrent/unstable angina. Cardiology consulted. Check serial cardiac markers. Continue aspirin, metoprolol, amlodipine, statin. Further evaluation and management per Cardiology. Please refer to RASHAWN Aguirre's documentation for discussion of other issues. Olaf Anderson MD . Additional Copies To Boone Michelle M.D.
[2017-09-22 15:32] VITALS: BP 127/77; PULSE 59; TEMP 36.3; O2SAT 97
[2017-09-22] MEDS: PANTOprazole SOD 40 MG TAB PO SCH (19:07)
[2017-09-22 20:00] VITALS: BP 106/68; PULSE 63; TEMP 36.6; O2SAT 96
[2017-09-22] MEDS: IPRATROPIUM BROMIDE NASAL SPRAY 0.06% 15ML SCH (20:51)
[2017-09-22] MEDS: FLUTICASONE PROPIONATE NA SPR 16 GM BTL NAE SCH (20:52)
[2017-09-22] MEDS ORDERED: ASPIRIN 81 MG ECTAB PO SCH (21:00)
[2017-09-22] MEDS ORDERED: MULTIVITAMIN TAB PO SCH (21:00)
[2017-09-22] MEDS ORDERED: ATORVASTATIN 40 MG TAB PO SCH (21:00)
[2017-09-22 23:35] VITALS: BP 109/67; PULSE 55; TEMP 36.4; O2SAT 98
[2017-09-23 03:07] VITALS: BP 102/66; PULSE 54; TEMP 36.4; O2SAT 98
[2017-09-23 06:07] LABS: HEMOGLOBIN 14.1 g/dL (14.0-18.0); MEAN CELL VOLUME 88.7 fL (80-100); MEAN CORPUSCULAR HEMOGLOBIN 30.5 pg (25-34); MEAN CORPUSCULAR HGB CONC 34.4 g/dl (32-36); MEAN PLATELET VOLUME 11.5 fL (7.4-10.4); PLATELET COUNT 150 K/uL (130-400); RED CELL DISTRIBUTION WIDTH CV 13.1 % (11.5-14.5); RED CELL DISTRIBUTION WIDTH SD 42.3 fL (36.4-46.3); WHITE BLOOD COUNT 4.31 K/uL (4.8-10.8)
[2017-09-23] MEDS: HEPARIN SOD 5000 UNIT/0.5 ML CARP SQ SCH (06:12)
[2017-09-23 06:46] LABS: CALCIUM 8.2 mg/dl (8.5-10.1); CREATININE 0.89 mg/dl (0.60-1.40); POTASSIUM 4.1 mmol/L (3.5-5.1)
[2017-09-23 07:38] VITALS: BP 124/77; PULSE 60; TEMP 36.3; O2SAT 98
[2017-09-23 07:45] VITALS: O2SAT 98
[2017-09-23] MEDS: FLUTICASONE PROPIONATE NA SPR 16 GM BTL NAE SCH (07:55)
[2017-09-23] MEDS: IPRATROPIUM BROMIDE NASAL SPRAY 0.06% 15ML SCH (07:55)
[2017-09-23] MEDS: PANTOprazole SOD 40 MG TAB PO SCH (07:56)
[2017-09-23] MEDS ORDERED: METOPROLOL SUCC 25MG EXT REL TAB PO SCH (09:00)
[2017-09-23] MEDS ORDERED: CETIRIZINE HCL 10 MG TAB PO SCH (09:00)
[2017-09-23] MEDS ORDERED: AMLODIPINE BESYLATE 5 MG TAB PO SCH (09:00)
[2017-09-23] MEDS ORDERED: MELOXICAM 7.5 MG TAB PO SCH (09:00)
[2017-09-23] MEDS ORDERED: DOXYCYCLINE HYCLATE 50 MG CAP PO SCH (09:00)
[2017-09-23] MEDS ORDERED: LISINOPRIL 10 MG TAB PO SCH (09:00)
--- NOTE | 2017-09-23 10:05 | Cardiology Follow-Up ---
Subjective General Date of Service: Sep 23, 2017. Chief Complaint: follow chest pain Pt evaluation today including: conversation w/ patient, conversation w/ family , physical exam History of Present Illness The patient is a 76 year old male seen in follow up. Follow up EKG and troponin level within normal limites. BPs well controlled since receiving home medications. Allergies Coded Allergies: Terbinafine (Verified Allergy, Severe, RASH, 09/22/17) Adhesives (Verified Allergy, Intermediate, REDDENED AREAS ON SKIN, 09/22/17 ) FROM TAPES Cephalexin (Verified Allergy, Intermediate, RASH, 09/22/17) Social History Smoking Status: Former Smoker Hx Tobacco Use In Past Year?: No Hx Alcohol Use - Type And Amou: Yes (2 wine/whiskey per day) Hx Substance Use - Type And Am: No Problem List Medical Problems: (1) Anginal pain Status: Acute Physical Exam Vital Signs Last Vital Signs Documentation Date Time Temp Pulse Resp B/P (MAP) Pulse Ox O2 Delivery O2 Flow Rate FiO2 09/23/17 07:45 98 Room Air 09/23/17 07:38 36.3 60 20 124/77 (93) Physical Exam Constitutional: Level of Distress: NAD Neck: supple, trachea midline Lungs: Auscultation: no wheezing, no rales/crackles, no rhonchi Cardiovascular: Heart Auscultation: RRR, no murmurs, no rubs, no gallops Extremities: no edema Neurologic: Gait & Station: pertinent finding (no focal deficits ) Assessment and Plan Assessment and Plan Impression: 76 y/o male, with h/o CAD, prior CABG x 1 for single vessel CAD, [place] to LAD in 01/2014 1. One isolated episode of chest discomfort -sxs resolved. -serial EKGs and troponin levels negative -Pt had non ischemic stress echo this am at high level of exertion. Plan: No reproduction with MILAGROS, achieving high level of exertion. Continue current medications. Will arrange follow up with me or Dr Blankenship within 1 month and will keep 01/2018 visit as well. Laboratory Results Last 24 Hours Test 09/22/17 13:57 09/22/17 20:13 09/23/17 05:06 Troponin I < 0.015 ng/ml < 0.015 ng/ml White Blood Count 4.31 K/uL Red Blood Count 4.62 M/uL Hemoglobin 14.1 g/dL Hematocrit 41.0 % Mean Corpuscular Volume 88.7 fL Mean Corpuscular Hemoglobin 30.5 pg Mean Corpuscular Hemoglobin Concent 34.4 g/dl RDW Standard Deviation 42.3 fL RDW Coefficient of Variation 13.1 % Platelet Count 150 K/uL Mean Platelet Volume 11.5 fL Sodium Level 140 mmol/L Potassium Level 4.1 mmol/L Chloride Level 108 mmol/L Carbon Dioxide Level 28 mmol/L Anion Gap 4.0 mmol/L Blood Urea Nitrogen 21 mg/dl Creatinine 0.89 mg/dl Est Creatinine Clear Calc Drug Dose 70.3 ml/min Estimated GFR () 97.6 Estimated GFR (Non- 84.2 BUN/Creatinine Ratio 23.1 Random Glucose 100 mg/dl Calcium Level 8.2 mg/dl Triglycerides Level 136 mg/dl Cholesterol Level 107 mg/dl HDL Cholesterol 38 mg/dl LDL Cholesterol, Calculated 42 mg/dl VLDL Cholesterol, Calculated 27 mg/dl Cholesterol/HDL Ratio 2.8
[2017-09-23 11:27] VITALS: BP 100/66; PULSE 60; TEMP 36.5; O2SAT 97
[2017-09-23 13:33] VITALS: BP 100/66; PULSE 60; TEMP 36.5; O2SAT 97
--- NOTE | 2017-09-23 13:53 | Progress Note ---
Medicine Progress Note Date & Time of Visit: Sep 23, 2017 at 13:53 . Subjective Doing well. No further chest pain. Treadmill stress test went well- no symptoms at adequate workload. . Objective Last 8 Hrs Date Time Temp Pulse Resp B/P (MAP) Pulse Ox O2 Delivery O2 Flow Rate FiO2 09/23/17 13:33 36.5 60 20 97 Room Air 09/23/17 11:27 36.5 60 20 100/66 (77) 97 Room Air 09/23/17 07:45 98 Room Air 09/23/17 07:38 36.3 60 20 124/77 (93) 98 Room Air Physical Exam: General- no distress Lungs- clear to auscultation; no respiratory distress Cardiovascular- RRR; no murmur; no gallop; no JVD; no pretibial edema Abdomen- + bowel sounds, soft, nontender Extremities- no cyanosis; no calf tenderness Neuro- alert, oriented Skin- warm & dry . Laboratory Results: Last 24 Hours Test 09/22/17 13:57 09/22/17 20:13 09/23/17 05:06 Troponin I < 0.015 ng/ml < 0.015 ng/ml White Blood Count 4.31 K/uL Red Blood Count 4.62 M/uL Hemoglobin 14.1 g/dL Hematocrit 41.0 % Mean Corpuscular Volume 88.7 fL Mean Corpuscular Hemoglobin 30.5 pg Mean Corpuscular Hemoglobin Concent 34.4 g/dl RDW Standard Deviation 42.3 fL RDW Coefficient of Variation 13.1 % Platelet Count 150 K/uL Mean Platelet Volume 11.5 fL Sodium Level 140 mmol/L Potassium Level 4.1 mmol/L Chloride Level 108 mmol/L Carbon Dioxide Level 28 mmol/L Anion Gap 4.0 mmol/L Blood Urea Nitrogen 21 mg/dl Creatinine 0.89 mg/dl Est Creatinine Clear Calc Drug Dose 70.3 ml/min Estimated GFR () 97.6 Estimated GFR (Non- 84.2 BUN/Creatinine Ratio 23.1 Random Glucose 100 mg/dl Calcium Level 8.2 mg/dl Triglycerides Level 136 mg/dl Cholesterol Level 107 mg/dl HDL Cholesterol 38 mg/dl LDL Cholesterol, Calculated 42 mg/dl VLDL Cholesterol, Calculated 27 mg/dl Cholesterol/HDL Ratio 2.8 Assessment & Plan CHEST PAIN History of CAD, s/p CABG as outlined in admission H&P. Midsternal chest pain day of admission while walking dog. Had taken dose of Mobic with yogurt prior to the walk. Serial troponins negative. No acute EKG changes. Seen in consultation by Cardiology. No stress-induced ischemia during treadmill stress echo at adequate workload. No pleuritic chest pain; O2 sats 97-99% on RA. Low clinical suspicion for pulmonary embolism. History of GERD; symptoms may have been due to GE reflux or esophageal spasm. Consider GI evaluation if symptoms recur. CORONARY ARTERY DISEASE Continue usual regimen of aspirin, metoprolol, amlodipine, statin. GERD Continue omeprazole. VTE PROPHYLAXIS SQ heparin. DISPOSITION Discharge to home. Family Medicine follow-up with Dr. Michelle. . Current Inpatient Medications: Current Inpatient Medications Medications (Trade) Dose Ordered Sig/Alen Route Start Time Stop Time Status Last Admin Dose Admin Acetaminophen (Tylenol Tab) 650 mg Q4H PRN PO 09/22/17 10:45 10/22/17 10:44 Ondansetron HCl (Zofran Inj) 4 mg Q6H PRN IV 09/22/17 10:45 10/22/17 10:44 Nitroglycerin (Nitrostat Tab) 0.4 mg UD PRN SL 09/22/17 10:45 10/22/17 10:44 Polyethylene (Miralax Powder Packet) 17 gm DAILY PRN PO 09/22/17 10:45 10/22/17 10:44 Heparin Sodium (Porcine) (Heparin Sq 5000 Unit/0.5ml) 5,000 unit Q8 SQ 09/22/17 14:00 10/22/17 13:59 09/23/17 06:12 5,000 UNIT Amlodipine Besylate (Norvasc Tab) 5 mg QAM PO 09/23/17 09:00 10/23/17 08:59 09/23/17 07:58 5 MG Aspirin (Ecotrin Tab) 162 mg QPM PO 09/22/17 21:00 10/22/17 20:59 09/22/17 20:53 162 MG Atorvastatin Calcium (Lipitor Tab) 80 mg QPM PO 09/22/17 21:00 10/22/17 20:59 09/22/17 20:53 80 MG Cetirizine HCl (zyrTEC TAB) 10 mg QAM PO 09/23/17 09:00 10/23/17 08:59 09/23/17 07:56 10 MG Fluticasone Propionate (Flonase Nasal [place]) 2 sprays BID ZHAO 09/22/17 21:00 10/22/17 20:59 09/23/17 07:55 2 SPRAYS Lisinopril (Zestril Tab) 10 mg QAM PO 09/23/17 09:00 10/23/17 08:59 09/23/17 07:58 10 MG Meloxicam (Mobic Tab) 7.5 mg DAILY PO 09/23/17 09:00 10/23/17 08:59 09/23/17 07:55 7.5 MG Metoprolol Succinate (Toprol Xl Tab) 12.5 mg QAM PO 09/23/17 09:00 10/23/17 08:59 09/23/17 07:56 12.5 MG Multivitamins (Multivitamin Tab) 1 tab QPM PO 09/22/17 21:00 10/22/17 20:59 09/22/17 20:53 1 TAB Terazosin HCl (Hytrin Cap) 5 mg HS PO 09/22/17 21:00 10/22/17 20:59 09/22/17 20:54 5 MG Doxycycline Hyclate (Vibramycin Cap) 50 mg DAILY PO 09/23/17 09:00 10/03/17 08:59 09/23/17 07:57 50 MG Ipratropium [place] (Atrovent Nasal [place] 0.06%) 2 sprays BID NA 09/22/17 21:00 10/22/17 20:59 09/23/17 07:55 2 SPRAYS Pantoprazole Sodium (Protonix Tab) 40 mg BID PO 09/22/17 21:00 10/22/17 20:59 09/23/17 07:56 40 MG Miscellaneous (Iv Fluids Completed) 1 ea PRN PRN N/A 09/22/17 12:15 09/22/18 12:14
--- NOTE | 2017-09-23 13:57 | Discharge Instructions ---
Discharge Instructions Date of Service Sep 23, 2017. Admission Reason for Admission: chest pain . Discharge Discharge Diagnosis / Problem: chest pain- no sign of a heart attack Discharge Goals Goal(s): Improve function, Improve disease control Activity Recommendations Activity Limitations: resume your previous activity . Instructions / Follow-Up Instructions / Follow-Up APPOINTMENTS: SLEEP MEDICINE 09/26/2017 4:10 PM [facility] 09/30/2017 2:40 PM Boone Michelle MD ORTHOPEDICS 10/06/2017 1:00 PM Mauro Coelho DO CARDIOLOGY 10/23/2017 11:00 AM Jasiel Daley DO OTHER INSTRUCTIONS: Seek medical attention if you have: * temperature above 101 * chest pain or trouble breathing * abdominal pain, nausea, vomiting * diarrhea, dark stools or bloody stools * any unanswered questions or concerns Call 911 if symptoms are severe. Call if you have any questions or problems. My cell # is [phone]. You can also reach a [facility] hospitalist on duty at [facility] 24 hours a day by calling [phone]. Please take good care of yourself. Olaf Anderson . Current Hospital Diet Patient's current hospital diet: AHA Diet (Heart Healthy) Discharge Diet Recommended Diet: AHA Diet (Heart Healthy) Pending Studies Studies pending at discharge: no Laboratory Results Lipid Panel Test 09/23/17 05:06 Range/Units Triglycerides Level 136 0-150 mg/dl Cholesterol Level 107 0-200 mg/dl HDL Cholesterol 38 mg/dl Cholesterol/HDL Ratio 2.8 LDL Cholesterol, Calculated 42 mg/dl Medical Emergencies . Who to Call and When: Medical Emergencies: If at any time you feel your situation is an emergency, please call 911 immediately. . Non-Emergent Contact Non-Emergency issues call your: Primary Care Provider, Bull Rider, Hospital Doctor . . "Provider Documentation" section prepared by Olaf Anderson. .
--- NOTE | 2017-09-23 15:21 | ECHOCARDIOGRAM REPORT ---
*NOTICE TO RECEIVING REPUBLICAN AGENCY This information is strictly Confidential and protected under [place] law. [place] law prohibits you from making any further disclosure of this information unless further disclosure is expressly permitted by the written consent of the person to whom it pertains or is authorized by law. A general authorization for the release of medical or other information is not sufficient for this purpose. Hospital accepts no responsibility if the information is made available to any other person, INCLUDING THE PATIENT. Interpretation Summary * Name: NARESH BRAGG Study Date: 09/22/2017 10:22 AM BP: 168/88 mmHg * Patient Location: [facility] HR: 64 * : 1940 (M/d/yyyy) Gender: Male Height: 65 in * Age: 76 yrs Ethnicity: [place] Weight: 173 lb * Ordering Physician: Jasiel Daley * Referring Physician: Self, Referred * Performed By: Mary Munoz RDCS * * Reason For Study: CHEST PAIN, HX CABG X 1 with DAVIS to LAD * BSA: 1.9 m2 * -- Conclusions -- * The study was technically adequate for the referral indication. * There is mild concentric left ventricular hypertrophy. * Septal motion is consistent with the postoperative state. * Otherwise left ventricular wall motion is normal. * The left ventricular ejection Fraction = 60-65%. * The right ventricle is normal in size and function. * Grade I diastolic dysfunction, (abnormal relaxation pattern). Procedure Details * A contrast injection of Definity was performed to improve assessment of LV function. * Contrast was injected into an intravenous site in the right arm. * One vial of Definity ultrasound contrast was diluted in normal saline to a total volume of 10 ml. A total of '1' ml of solution was administered during imaging. * Lot # [id number] of Definity utilized for procedure. * Expiration date SEP 11. * The attending nurse who injected the contrast agent was WADE FELIPE. * A complete two-dimensional transthoracic echocardiogram was performed (2D, M-mode, Doppler and color flow Doppler). Left Ventricle * The left ventricle is normal in size. * There is mild concentric left ventricular hypertrophy. * Left ventricular systolic function is normal. * Ejection Fraction = 60-65%. * Septal motion is consistent with the postoperative state. Otherwise left ventricular wall motion is normal. Right Ventricle * The right ventricle is normal in size and function. * The right ventricular systolic function is normal as assessed by tricuspid annular plane systolic excursion (TAPSE) (normal >1.5 cm). Atria * The left atrium is mildly dilated. * Right atrial size is normal. * There is no evidence of atrial septal defect, but resolution does not allow assessment for a patent foramen ovale. Mitral Valve * The mitral valve is normal. * There is no mitral valve stenosis. * Significant mitral regurgitation is absent. Tricuspid Valve * The tricuspid valve is normal. * There is no tricuspid stenosis. * Significant tricuspid regurgitation is absent. Aortic Valve * The aortic valve is trileaflet. * Aortic stenosis is absent. * Trace aortic regurgitation. Pulmonic Valve * The pulmonary valve is not well seen, but the Doppler examination is normal without significant regurgitation or stenosis. Great Vessels * The aortic root and proximal ascending aorta are normal sized. Pericardium/Pleural * There is no pericardial effusion. Great Vessels * Normal inferior vena cava diameter and respiratory variation suggests normal central venous pressure. Left Ventricular Diastolic Function * Grade I diastolic dysfunction, (abnormal relaxation pattern). MMode 2D Measurements and Calculations IVSd 1.3 cm IVSs 1.9 cm LVIDd 4.3 cm LVIDs 3.0 cm LVPWd 1.6 cm LVPWs 2.2 cm IVS/LVPW 0.86 FS 29.9 % EDV(Teich) 83.3 ml ESV(Teich) 35.5 ml EF(Teich) 57.3 % EDV(cubed) 79.8 ml ESV(cubed) 27.5 ml EF(cubed) 65.5 % % IVS thick 40.7 % % LVPW thick 38.9 % LV mass(C)d 242.8 grams LV mass(C)dI 130.5 grams/m\S\2 LV mass(C)s 268.3 grams LV mass(C)sI 144.3 grams/m\S\2 SV(Teich) 47.8 ml SI(Teich) 25.7 ml/m\S\2 SV(cubed) 52.3 ml SI(cubed) 28.1 ml/m\S\2 Ao root diam 3.3 cm Ao root area 8.7 cm\S\2 LA dimension 5.5 cm LA/Ao 1.6 LVAd ap4 31.9 cm\S\2 LVLd ap4 7.9 cm EDV(MOD-sp4) 105.9 ml EDV(sp4-el) 109.1 ml LVAs ap4 16.0 cm\S\2 LVLs ap4 6.1 cm ESV(MOD-sp4) 35.2 ml ESV(sp4-el) 35.4 ml EF(MOD-sp4) 66.7 % EF(sp4-el) 67.5 % LVAd ap2 27.4 cm\S\2 LVLd ap2 8.2 cm EDV(MOD-sp2) 78.6 ml EDV(sp2-el) 77.8 ml LVAs ap2 12.4 cm\S\2 LVLs ap2 6.4 cm ESV(MOD-sp2) 20.6 ml ESV(sp2-el) 20.4 ml EF(MOD-sp2) 73.8 % EF(sp2-el) 73.8 % LVLd %diff 3.2 % EDV(MOD-bp) 91.4 ml LVLs %diff 4.7 % ESV(MOD-bp) 27.5 ml EF(MOD-bp) 70.0 % SV(MOD-sp4) 70.7 ml SI(MOD-sp4) 38.0 ml/m\S\2 SV(MOD-sp2) 58.0 ml SI(MOD-sp2) 31.2 ml/m\S\2 SV(MOD-bp) 64.0 ml SI(MOD-bp) 34.4 ml/m\S\2 SV(sp4-el) 73.7 ml SI(sp4-el) 39.6 ml/m\S\2 SV(sp2-el) 57.5 ml SI(sp2-el) 30.9 ml/m\S\2 Doppler Measurements and Calculations MV E max jarred 63.0 cm/sec MV A max jarred 59.1 cm/sec MV E/A 1.1 MV dec time 0.26 sec Ao V2 max 111.7 cm/sec Ao max PG 5.0 mmHg Ao max PG (full) 0.78 mmHg AI max jarred 455.4 cm/sec AI max PG 83.0 mmHg AI dec slope 212.0 cm/sec\S\2 AI P1/2t 629.2 msec LV V1 max PG 4.2 mmHg LV V1 max 102.7 cm/sec TR max jarred 227.3 cm/sec
--- NOTE | 2017-09-23 15:33 | EXERCISE STRESS ECHO ---
*NOTICE TO RECEIVING REPUBLICAN AGENCY This information is strictly Confidential and protected under [place] law. [place] law prohibits you from making any further disclosure of this information unless further disclosure is expressly permitted by the written consent of the person to whom it pertains or is authorized by law. A general authorization for the release of medical or other information is not sufficient for this purpose. Hospital accepts no responsibility if the information is made available to any other person, INCLUDING THE PATIENT. Interpretation Summary * Name: NARESH BRAGG Study Date: 09/23/2017 08:07 AM BP: 160/84 mmHg * Patient Location: [facility] HR: 61 * : 1940 (M/d/yyyy) Gender: Male Height: 65 in * Age: 76 yrs Ethnicity: [place] Weight: 173 lb * Ordering Physician: Jasiel Daley * Referring Physician: Self, Referred * Performed By: Olamide Jacobs RCS * * Reason For Study: Chest Pain * BSA: 1.9 m2 * -- Conclusions -- * STRESS STUDY: * Normal exercise stress echocardiogram. * No echocardiographic or EKG evidence of myocardial ischemia having achieved heart rate adequate for diagnostic purposes. * The patient's presenting symptom of chest heaviness was not reproduced with a high level of exercise. * The patient completed 9 minutes on a standard [place] protocol, equivalent to 10 minutes. * The heart rate response to exercise was attenuated with patient on chronic beta-lalitha. Procedure Details * ECHOEX, CPT #37173 Left Ventricle * The left ventricle is normal in size. There is mild concentric left ventricular hypertrophy. * Septal motion is consistent with the postoperative state, otherwise the resting left ventricular wall motion is normal. * The left ventricular ejection fraction increases normally with stress. The left ventricular end-systolic cavity size reduces post-stress (normal response). The left ventricular wall motion with stress is normal. * The stress wall motions was normal. Stress Parameters * The baseline EKG reveals sinus rhythm with bifascicular block. * Stress EKG is negative for ischemia. * The stress portion of this study was personally supervised by the undersigned interpreting physician. * Rest heart rate was '61' BPM. * Rest blood pressure was '160/84' * Maximum heart rate achieved was 110 bpm. * Maximum heart rate was 75 % of maximum age-predicted heart rate. * Maximum blood pressure was '160/84' * Total exercise time was '9:03' * Maximum exercise MET level achieved was '10.1' METS * Maximum treadmill speed was '4.2' miles per hour. * Maximum treadmill elevation was '15.6'% grade. * Exercise was terminated due to 'fatigue'
--- NOTE | 2017-09-25 09:45 | Discharge Summary ---
Discharge Summary Date of Service Sep 25, 2017. Discharge Summary Admission Date: Sep 22, 2017 at 10:31 Discharge Date: Sep 23, 2017 Discharge Disposition: Home Principal Diagnosis: chest pain- ME ruled out, stress test negative . Secondary Diagnoses/Problems: Chronic and Resolved Medical Problems: (1) Arthritis Status: Chronic (2) CAD (coronary artery disease) Status: Chronic (3) DJD (degenerative joint disease) Status: Chronic (4) GERD (gastroesophageal reflux disease) Status: Chronic (5) HTN (hypertension) Status: Chronic (6) Hyperlipidemia Status: Chronic (7) HUANG (obstructive sleep apnea) Status: Chronic (8) Psoriasis Status: Chronic (9) Rosacea Status: Chronic Surgical Problems: (1) Hx of cataract surgery Status: Resolved (2) S/P CABG x 1 Permanent Comment: 2013[facility] Status: Resolved . Procedures: cardiac monitoring treadmill stress echo . Consultations: Cardiology with Dr. Daley . Medication Reconciliation Continued Medications: Amlodipine (Norvasc) 5 Mg Tab 5 MG PO QAM, TAB Aspirin (Aspirin 81) 81 Mg Tab 162 MG PO QPM Atorvastatin (Lipitor) 80 Mg Tab 80 MG PO QPM, TAB Cetirizine (Zyrtec) 10 Mg Tab 10 MG PO QAM, TAB Doxycycline (Monohydrate) (Doxycycline) 50 Mg Cap 1 CAP PO DAILY Fluocinonide (Fluocinonide) 0.05 % Sary 1 APPLN TOP QAM PRN for psoriasis Fluticasone Propionate (Nasal) (Flonase Allergy Relief) 50 Mcg/Act Spr 2 SPRAY ZHAO BID Ipratropium [place] (Nasal) (Ipratropium [place]) 0.06 % Spr 2 SPRAYS NA BID Lisinopril (Zestril) 10 Mg Tab 10 MG PO QAM, TAB Meloxicam (Mobic) 7.5 Mg Tab 7.5 MG PO DAILY, TAB Metoprolol Succ (Toprol Xl) (Toprol-Xl) 25 Mg Tabcr 12.5 MG PO QAM, TAB Metronidazole (Topical) (Metrocream) 0.75 % Cre 1 APPLN TOP QAM PRN for rosacea Multivitamin (Multivitamin) Tab 1 TAB PO QPM, TAB Nitroglycerin (Nitrostat) 0.4 Mg Tab 0.4 MG UT PRN, BTL Omeprazole (Prilosec) 20 Mg Cap 20 MG PO BID, CAP [place] ([place]) (S[place] Prostate Com) 160 Mg Cap 160 MG PO DAILY Sildenafil Citrate (Viagra) 100 Mg Tab 100 MG PO PRN, TAB Terazosin (Hytrin) 5 Mg Cap 1 CAP PO HS for 90 Days, #90 CAP 1 Refill Admission Information HPI (per Admitting provider): Pt is 76 y/o M with PMH CAD S/P CABG in 2013, HTN, HLD, bifascicular heart block , GERD, HUANG presented to ER with complaint of chest pressure. Patient states was walking his dog this morning and as soon as started walking started having chest pressure to mid chest that was nonradiating and continued throughout his 20 minute walk. Reports pain resolved approximately 5 minutes after rest and has been pain-free since. Patient denies any associated dizziness, SOB, palpitations, nausea, vomiting. He states this chest pressure was similar to what he experienced prior to his CABG in 2013. Patient states goes to gym 3 times a week, and walks daily without any CP or SOB. He states only took his mobic this morning, did not take his other medications. Ate yogurt this morning. Patient reports history left Achilles tendon rupture in 03/2017 in which he was casted for approximately 6 weeks. Patient states gets some swelling to left ankle and calf with activity, denies any worsening, denies any other edema. Denies fever/chills, diaphoresis, N/V/D/C, AUGUSTINE, dizziness, syncope, vision changes, neck pain, orthopnea, cough, sore throat, choking, otalgia, abdominal pain, paresthesias, weakness, extremity weakness, rashes, urinary symptoms, weight loss. . Physical Exam (per Admitting): General Appearance: WD/WN, no apparent distress Head: normocephalic, atraumatic Eyes: normal inspection, sclerae normal ENT: hearing grossly normal, pharynx normal, + pertinent finding Neck: supple, trachea midline Respiratory/Chest: lungs clear, normal breath sounds, no respiratory distress Cardiovascular: regular rate, rhythm, no murmur Abdomen/GI: normal bowel sounds, non tender, soft Extremities/Musculoskelatal: no calf tenderness, normal capillary refill, no pedal edema, non-tender Neurologic/Psych: alert, normal mood/affect, oriented x 3 Skin: warm/dry Hospital Course CHEST PAIN History of CAD, s/p CABG as outlined in admission H&P. Midsternal chest pain day of admission while walking dog. Had taken dose of Mobic with yogurt prior to the walk. Serial troponins negative. No acute EKG changes. Seen in consultation by Cardiology. No stress-induced ischemia during treadmill stress echo at adequate workload. No pleuritic chest pain; O2 sats 97-99% on RA. Low clinical suspicion for pulmonary embolism. History of GERD; symptoms may have been due to GE reflux or esophageal spasm. Consider GI evaluation if symptoms recur. CORONARY ARTERY DISEASE Continue usual regimen of aspirin, metoprolol, amlodipine, statin. GERD Continue omeprazole. VTE PROPHYLAXIS SQ heparin. DISPOSITION Discharge to home. Family Medicine follow-up with Dr. Michelle. . Discharge Instructions Discharge Instructions Date of Service Sep 23, 2017. Admission Reason for Admission: chest pain . Discharge Discharge Diagnosis / Problem: chest pain- no sign of a heart attack Discharge Goals Goal(s): Improve function, Improve disease control Activity Recommendations Activity Limitations: resume your previous activity . Instructions / Follow-Up Instructions / Follow-Up APPOINTMENTS: SLEEP MEDICINE 09/26/2017 4:10 PM KIRAN [facility] 09/30/2017 2:40 PM Boone Michelle MD ORTHOPEDICS 10/06/2017 1:00 PM Mauro Coelho DO CARDIOLOGY 10/23/2017 11:00 AM Jasiel Daley DO OTHER INSTRUCTIONS: Seek medical attention if you have: * temperature above 101 * chest pain or trouble breathing * abdominal pain, nausea, vomiting * diarrhea, dark stools or bloody stools * any unanswered questions or concerns Call 911 if symptoms are severe. Call if you have any questions or problems. My cell # is [phone]. You can also reach a [facility] hospitalist on duty at [facility] 24 hours a day by calling [phone]. Please take good care of yourself. Olaf Anderson . Current Hospital Diet Patient's current hospital diet: AHA Diet (Heart Healthy) Discharge Diet Recommended Diet: AHA Diet (Heart Healthy) Pending Studies Studies pending at discharge: no Laboratory Results Lipid Panel Test 09/23/17 05:06 Range/Units Triglycerides Level 136 0-150 mg/dl Cholesterol Level 107 0-200 mg/dl HDL Cholesterol 38 mg/dl Cholesterol/HDL Ratio 2.8 LDL Cholesterol, Calculated 42 mg/dl Medical Emergencies . Who to Call and When: Medical Emergencies: If at any time you feel your situation is an emergency, please call 911 immediately. . Non-Emergent Contact Non-Emergency issues call your: Primary Care Provider, Boat [employer], Hospital Doctor . . "Provider Documentation" section prepared by Olaf Anderson. ..
== END 2017-09-23 14:19 | disposition home or self-care (01) ==
LOC: C.EDB 07:38 → C.2T 10:31 → ENRESERV 10:52
PROVIDERS: ADMIT Hospitalist; ATTEND Hospitalist
DX: R07.9 Chest pain, unspecified (principal); I25.10 Atherosclerotic heart disease of native coronary artery without angina pectoris; I10 Essential (primary) hypertension; E78.5 Hyperlipidemia, unspecified; G47.33 Obstructive sleep apnea (adult) (pediatric); K21.9 Gastro-esophageal reflux disease without esophagitis; Z95.1 Presence of aortocoronary bypass graft; Z87.891 Personal history of nicotine dependence; Z88.8 Allergy status to other drugs, medicaments and biological substances; Z88.1 Allergy status to other antibiotic agents; Z79.899 Other long term (current) drug therapy; Z79.82 Long term (current) use of aspirin